=== PATIENT | female | born 1985 | race Hispanic/Latino ===

== ENCOUNTER 2022-07-06 06:30 | Day surgery (SDC) | payer OTHER ==
[2022-06-30 09:03] LABS: CREATININE 0.5 mg/dL (0.5-1.5); POTASSIUM 4.5 mmol/L (3.5-5.1)
[2022-07-01 09:32] VITALS: BP 113/77
[~2022-07-06] VITALS: Ht 167.6 cm; Wt 116.1 kg
[2022-07-06] VITALS (14 sets, daily range): BP systolic 118–140; BP diastolic 69–81
[~2022-07-06 06:30] MED LIST: 0.9%NACL 1000ML 1,000 ML IV ONE; ATOG60TA PO; ATOR20TA65 PO; DAPA10TA PO; GABA-529 PO; GALC120S SQ; METF-446 PO; SEMA1PEN3 SQ; UBRO100T PO
[2022-07-06] MEDS ORDERED: PROPOFOL 10 MG/ML 20ML VIAL IV ONE (07:22)
[2022-07-06] MEDS ORDERED: MIDAZOLAM HCL 1 MG/ML 2ML VIAL ONE (07:22)
[2022-07-06] MEDS ORDERED: FENTANYL CITRATE PF 50 MCG/1 ML 2ML VIAL ONE (07:22)
[2022-07-06] MEDS ORDERED: LIDOCAINE HCL MPF 1% 5ML VIAL ONE (07:22)
[2022-07-06] MEDS ORDERED: DEXAMETHASONE SOD PHOSPHATE 4 MG/ML 1ML VIAL ONE (08:14)
[2022-07-06] MEDS ORDERED: ONDANSETRON 4MG INJ ONE (08:14)
[2022-07-06] MEDS ORDERED: PHENYLEPHRINE HCL 10 MG/ML 1ML VIAL IV ONE (08:18)
[2022-07-06] MEDS ORDERED: KETOROLAC 30MG VIAL (30MG/ML) ONE (08:22)
[2022-07-06] MEDS ORDERED: MEPERIDINE-PF 25 MG/ML SYG ONE ×2 (08:52→09:06)
== END 2022-07-06 10:00 | disposition home or self-care (01) ==
LOC: DAH 06:30
PROVIDERS: ATTEND Obstetrics & Gynecology
DX: N93.9 Abnormal uterine and vaginal bleeding, unspecified (principal); Z20.822 Contact with and (suspected) exposure to COVID-19; N94.6 Dysmenorrhea, unspecified; D25.9 Leiomyoma of uterus, unspecified; E11.9 Type 2 diabetes mellitus without complications; Z79.899 Other long term (current) drug therapy; Z79.01 Long term (current) use of anticoagulants; Z98.890 Other specified postprocedural states; Z87.891 Personal history of nicotine dependence; Z82.49 Family history of ischemic heart disease and other diseases of the circulatory system; Z83.3 Family history of diabetes mellitus
CPT/HCPCS: 80048; 84703; 87426; 36415; 58558; 82948 ×2; 81025; A6260; J1100; A4663; J7030 ×2; A4351; A4355; J3010; J2250; J2704; J2405; J1885; J2175 ×2; J2370; J3490; A4215; A4223; A4222; A4221

== ENCOUNTER 2023-05-31 06:21 | Day surgery (SDC) | payer BC ==
[2023-05-29 10:07] LABS: BASOPHILS # (AUTO) 0.03 K/uL (0.00-0.20); BASOPHILS % (AUTO) 0.5 % (0.0-5.0); EOSINOPHILS # (AUTO) 0.05 K/uL (0.00-0.70); EOSINOPHILS % (AUTO) 0.8 % (0.0-8.0); HEMATOCRIT 43.1 % (36-48); IMMATURE GRANULOCYTE ABSOLUTE 0.03 K/uL (0-1); LYMPHOCYTES # (AUTO) 2.1 K/uL (1.0-4.8); LYMPHOCYTES % (AUTO) 32.6 % (21.0-51.0); MEAN CORPUSCULAR HEMOGLOBIN 32.5 pg (27.0-33.0); MEAN CORPUSCULAR HGB CONC 33.2 g/dL (32.0-36.0); MONOCYTES # (AUTO) 0.5 K/uL (0.1-1.0); MONOCYTES % (AUTO) 7.9 % (3.0-13.0); NEUTROPHILS # (AUTO) 3.8 K/uL (1.8-7.7); NEUTROPHILS % (AUTO) 57.7 % (40.0-77.0); PLATELET COUNT (AUTO) 273 K/uL (130-400); RED CELL DISTRIBUTION WIDTH 13.1 % (11.0-15.5); WHITE BLOOD COUNT (AUTO) 6.6 K/uL (4.8-10.8)
[2023-05-29 10:20] LABS: CREATININE 0.6 mg/dL (0.5-1.5); POTASSIUM 4.5 mmol/L (3.5-5.1)
[2023-05-29 10:21] VITALS: BP 136/66; PULSE 68; RESP 14
[~2023-05-31] VITALS: Ht 168.9 cm; Wt 116.8 kg
[2023-05-31] VITALS (22 sets, daily range): BP systolic 107–130; BP diastolic 48–74; PULSE 72–91; RESP 13–19
[~2023-05-31 06:21] MED LIST changes: -ATOG60TA PO; -GABA-529 PO; -GALC120S SQ; -METF-446 PO; -SEMA1PEN3 SQ; +TIRZ12.5 SQ; -UBRO100T PO
[2023-05-31] MEDS ORDERED: LIDOCAINE 1%-EPI 1:100,000 20 ML VIAL ONE (06:24)
[2023-05-31] MEDS ORDERED: SCOPOLAMINE HYDROBROMIDE 1 EACH ADH..PATCH TD ONE (06:26)
[2023-05-31] MEDS ORDERED: PHENAZOPYRIDINE HCL 200 MG TABLET ONE (06:26)
[2023-05-31] MEDS ORDERED: DEXAMETHASONE SOD PHOSPHATE 4 MG/ML 1ML VIAL ONE (06:26)
[2023-05-31] MEDS ORDERED: METRONIDAZOLE 500MG/100ML BAG 100 ML ONE (06:26)
[2023-05-31] MEDS: CEFAZOLIN SODIUM 2 GM VIAL ONE ×2 (06:57→08:20)
[2023-05-31] MEDS ORDERED: HYDROMORPHONE 1 MG INJ ONE ×2 (07:27→10:51)
[2023-05-31] MEDS ORDERED: FAMOTIDINE 20MG VIAL IV ONE (07:28)
[2023-05-31] MEDS ORDERED: BUPIVACAINE LIPOSOME/PF 266 MG/20 ML ML IJ ONE (07:30)
[2023-05-31] MEDS ORDERED: FENTANYL CITRATE PF 50 MCG/1 ML 2ML VIAL ONE ×2 (07:32→08:55)
[2023-05-31] MEDS ORDERED: LIDOCAINE PF 100MG/5ML (2%) SYRINGE 5ML ONE (07:32)
[2023-05-31] MEDS ORDERED: PROPOFOL 10 MG/ML 20ML VIAL IV ONE (07:32)
[2023-05-31] MEDS ORDERED: ROCURONIUM 10MG/1ML SYR 10 MG/ML ML ONE ×2 (07:32→08:42)
[2023-05-31] MEDS ORDERED: GLYCOPYRROLATE 1 MG/5 ML SYRINGE ONE ×2 (07:32→10:03)
[2023-05-31] MEDS ORDERED: MIDAZOLAM HCL 1 MG/ML 2ML VIAL ONE (07:34)
[2023-05-31] MEDS ORDERED: BUPIVACAINE/PF 0.25% 30ML VIAL IJ ONE ×2 (08:20→08:24)
[2023-05-31] MEDS ORDERED: ONDANSETRON 4MG INJ ONE (08:23)
[2023-05-31] MEDS ORDERED: KETOROLAC 30MG VIAL (30MG/ML) ONE (09:59)
[2023-05-31] MEDS ORDERED: NEOSTIGMINE 5MG/5ML SYR IV ONE (10:03)
[2023-05-31] MEDS ORDERED: ACETAMINOPHEN 500 MG TABLET ONE (12:34)
== END 2023-05-31 14:19 | disposition home or self-care (01) ==
LOC: DAH 06:21
PROVIDERS: ATTEND Obstetrics & Gynecology
DX: N93.9 Abnormal uterine and vaginal bleeding, unspecified (principal); N92.1 Excessive and frequent menstruation with irregular cycle; N83.01 Follicular cyst of right ovary; N72 Inflammatory disease of cervix uteri; D25.9 Leiomyoma of uterus, unspecified; N85.8 Other specified noninflammatory disorders of uterus; N85.2 Hypertrophy of uterus; E11.9 Type 2 diabetes mellitus without complications; Z79.899 Other long term (current) drug therapy; Z82.49 Family history of ischemic heart disease and other diseases of the circulatory system; Z83.3 Family history of diabetes mellitus; Z80.8 Family history of malignant neoplasm of other organs or systems; Z87.891 Personal history of nicotine dependence; Z98.890 Other specified postprocedural states
CPT/HCPCS: 58571; S2900; 36415; 80048; 82948; 84703; 85025; 86850; 86900; 86901; 88305; 88307; A4344; C9290; J1100; J1170; J1885; J2001; J2250; J2405; J2704; J2710; J3010; J3490; J7030; J7120; A4215; A4221; A4222; A4510; A4600; A4649; A4663; A4930; G0168; J0665; J0690